=== PATIENT | female | born 1990 | race Caucasian/White ===

== ENCOUNTER 2018-01-06 14:16 | Emergency (ER) | payer OTHER, SELFPAY ==
[2018-01-06 14:20] VITALS: BP 122/87; PULSE 77; RESP 14; TEMP 36.9; O2SAT 100; BMI 28.3
--- NOTE | 2018-01-06 17:01 | ED.ABDPAIN ---
HPI - Abdominal Pain <ISABELL Huston - Last Filed: 01/06/18 22:30> General Chief Complaint: Abdominal Pain Stated Complaint: severe left side pelvic pain Time Seen by Provider: 01/06/18 17:01 History of Present Illness HPI narrative: 27-year-old female here for complaint of left pelvic pain over the past few weeks on and off. She reports increased pain over the last several days. She was seen at [facility] for this a few weeks ago with a ultrasound that showed that she had a right ovarian cyst no left ovarian cyst otherwise unremarkable ultrasound. She was seen at primary care provider for this as well. She states she has had a whitish discharge over the past couple of weeks. She denies any fevers or chills. She is currently on her menstrual cycle which started 6 days ago. She denies any stressors or relievers of the discomfort. She denies any nausea vomiting. Last bowel movement was yesterday and was unremarkable. She she denies any urinary symptoms. She does report that she did have a miscarriage in November when she was approximately 5 weeks along. She denies any other concerns or complaints at this time. Related Data Home Medications Medication Instructions Recorded Confirmed [id number] fumarate-FA 1 tab PO QPM #0 04/18/16 01/06/18 [] cholecalciferol (vitamin D3) 2,000 iu PO QPM #0 04/18/16 01/06/18 [Vitamin D3] acetaminophen 1 dose PO PRN PRN 01/06/18 01/06/18 aspirin 81 mg PO QPM 01/06/18 01/06/18 hydrocodone-acetaminophen 1 tab PO PRN PRN 01/06/18 01/06/18 ibuprofen 600 mg PO TID PRN 01/06/18 01/06/18 levothyroxine 1 tab PO DAILY 01/06/18 01/06/18 ondansetron 8 mg PO PRN PRN 01/06/18 01/06/18 Previous Rx's Medication Instructions Recorded doxycycline hyclate 100 mg PO BID #28 caplet 01/06/18 metronidazole 500 mg PO BID #28 tab 01/06/18 Allergies Allergy/AdvReac Type Severity Reaction Status Date / Time No Known Drug Allergies Allergy Verified 01/06/18 14:25 Review of Systems <ISABELL Huston - Last Filed: 01/06/18 22:30> Constitutional Denies chills, Denies fever(s), Denies lethargy and Denies weakness Eyes Denies change in vision, Denies eye discharge, Denies irritation and Denies loss of vision ENT Ears, Nose, Mouth, and Throat: Denies change in voice, Denies neck pain and Denies sore throat Cardiovascular Denies chest pain, Denies irregular heart rhythm, Denies lightheadedness, Denies palpitations, Denies dyspnea, Denies dyspnea on exertion and Denies orthopnea Respiratory Denies cough, Denies dyspnea, Denies dyspnea on exertion and Denies wheezing Gastrointestinal Gastrointestinal: Denies abdominal pain, Denies change in bowel habits, Denies diarrhea, Denies nausea and Denies vomiting Genitourinary Denies hematuria, Reports pelvic pain, Denies flank pain, Denies urinary incontinence, Denies urinary urgency and Reports vaginal discharge Musculoskeletal Denies neck pain Integumentary/Breasts Denies pruritus, Denies erythema, Denies rash and Denies wounds Neurologic Denies confusion, Denies loss of vision and Denies weakness Psychiatric Denies anxiety, Denies confusion, Denies depression, Denies homicidal ideation and Denies suicidal ideation Endocrine Denies palpitations Hematologic/Lymphatic Denies easy bruising Allergic/Immunologic Denies wheezing Exam <Remi Blue [facility] - Last Filed: 01/06/18 22:30> Initial Vital Signs Initial Vital Signs: Vital Signs Temperature 98.4 F 01/06/18 14:20 Pulse Rate 77 01/06/18 14:20 Respiratory Rate 14 01/06/18 14:20 Blood Pressure 122/87 H 01/06/18 14:20 Pulse Oximetry 100 01/06/18 14:20 Const General: cooperative and well developed Nutritional Appearance: well nourished Orientation: alert, awake, oriented x3 and not confused [facility] Mouth: oral mucosae normal and moist mucous membranes Eyes General: appearance normal, both eyes and all related structures Eyelids: eyelids normal Conjunctivae: conjunctivae normal Sclera: sclerae normal Pupils: PERRL EOM: EOM intact bilaterally Resp Effort & Inspection: normal respiratory effort, able to speak in complete sentences, no respiratory distress and no use of accessory muscles Auscultation: clear to auscultation bilaterally, no rales, no rhonchi and no wheezes Cardio Rate: regular rate Rhythm: regular rhythm Heart Sounds: no click, no gallops, no murmurs and no rubs GI Inspection: non-distended Palpation: soft, no hepatosplenomegaly, No guarding, No pulsatile mass and tender (Left pelvic tenderness) Auscultation: normal bowel sounds General: No CVA tenderness External Female Exam: external appearance normal and normal appearance of the urethra Speculum Exam - Vagina: abnormal vaginal discharge white Speculum Exam - Cervix: normal appearance of the cervix, closed cervix and cervical tenderness Bimanual Exam- Vagina & Uterus: cervical tenderness and cervical motion tenderness Bimanual Exam- Adnexa, other: adnexal tenderness Skin General: no rashes or lesions noted, No jaundice and No petechiae Neuro General: alert, oriented x3, gait normal and no focal motor deficits Speech: speech normal <Alyx Ely DO - Last Filed: 01/07/18 07:50> Initial Vital Signs Initial Vital Signs: Vital Signs Temperature 98.4 F 01/06/18 14:20 Pulse Rate 77 01/06/18 14:20 Respiratory Rate 14 01/06/18 14:20 Blood Pressure 122/87 H 01/06/18 14:20 Pulse Oximetry 100 01/06/18 14:20 Course <ISABELL Huston - Last Filed: 01/06/18 22:30> Orders Ordered: Discontinued Medications Hydrocodone Bitart/Acetaminophen ([place] 5/325) 1 tab PO NOW ONE Stop: 01/06/18 20:10 Last Admin: 01/06/18 20:39 Dose: 1 tab Ceftriaxone Sodium (Rocephin) 250 mg IM NOW ONE Stop: 01/06/18 20:33 Last Admin: 01/06/18 20:59 Dose: 250 mg Ondansetron HCl (Zofran Odt) 8 mg PO NOW ONE Stop: 01/06/18 20:35 Last Admin: 01/06/18 20:39 Dose: 8 mg Vital Signs - 8 hr 01/06/18 20:24 Pulse Rate 55 L Respiratory Rate 14 Blood Pressure [Left Arm] 106/67 Pulse Oximetry 100 <Alyx Ely DO - Last Filed: 01/07/18 07:50> Orders Ordered: Discontinued Medications Hydrocodone Bitart/Acetaminophen ([place] 5/325) 1 tab PO NOW ONE Stop: 01/06/18 20:10 Last Admin: 01/06/18 20:39 Dose: 1 tab Ceftriaxone Sodium (Rocephin) 250 mg IM NOW ONE Stop: 01/06/18 20:33 Last Admin: 01/06/18 20:59 Dose: 250 mg Ondansetron HCl (Zofran Odt) 8 mg PO NOW ONE Stop: 01/06/18 20:35 Last Admin: 01/06/18 20:39 Dose: 8 mg Vital Signs - 8 hr 01/06/18 20:24 Pulse Rate 55 L Respiratory Rate 14 Blood Pressure [Left Arm] 106/67 Pulse Oximetry 100 MDM - Abdominal Pain <ISABELL Huston - Last Filed: 01/06/18 22:30> Lab Data Result diagrams: 01/06/18 Unknown 01/06/18 Unknown Lab Results 01/06/18 01/06/18 Range/Units Unknown Unknown WBC 5.8 (4.5-11.0) X10^3/uL RBC 4.23 (4.0-5.2) X10^6/uL Hgb 13.1 (12.0-16.0) g/dL Hct 38.3 (36-46) % MCV 90.7 (80-100) fL MCH 30.9 (26-34) PG MCHC 34.1 (30-36) % RDW 12.4 (11.6-14.8) % Plt Count 251 (150-400) X10^3/uL Neut % (Auto) 58.3 (50-75) % Lymph % (Auto) 35.5 (25-40) % [place] % (Auto) 4.4 (3-14) % Eos % (Auto) 1.1 L (2-4) % Baso % (Auto) 0.7 (0-2) % Neut # (Auto) 3400 (6328-1087) /uL Sodium 142 (137-145) mmol/L Potassium 4.2 (3.4-5.1) mmol/L Chloride 105 (98-107) mmol/L Carbon Dioxide 27 (22-32) mmol/L BUN 9 (7-17) mg/dL Creatinine 0.60 (0.52-1.04) mg/dL Estimated GFR > 60.0 (>60) mL/min BUN/Creatinine Ratio 15.0 (6-22) Glucose 82 (70-100) mg/dL Calcium 9.2 (8.4-10.2) mg/dL Total Bilirubin 0.4 (0.2-1.3) mg/dL AST 24 (14-36) IU/L ALT 34 (9-52) IU/L Alkaline Phosphatase 66 (38-126) U/L Total Protein 6.9 (6.3-8.2) g/dL Albumin 4.5 (3.5-5.0) g/dL Globulin 2.4 (1.7-4.1) g/dL Albumin/Globulin Ratio 1.9 (1.0-2.8) Point of care testing: Point of Care Testing Test Results Negative Urine Dip Bedside Urine Glucose Negative Bedside Urine Bilirubin - Negative Bedside Urine Ketone +/- 5 Urine Specific [place] 1.015 Bedside Urine Occult Blood - Negative Bedside Urine pH 6.0 Bedside Urine Protein - Negative Bedside Urine Urobilinogen - Negative Bedside Urine Nitrite - Negative Bedside Urine Leukocytes - Negative Esterase Imaging Data pelvic US: Radiologist's impression: Patient: Shelby Kohler MR#: [id number] : 1990 Acct:[id number] Age/Sex: 27 / F Date of Service: 01/06/18 Loc: ED Accession Number: [id number] Procedure: US pelvic complete Ordering Provider: Remi Blue PROCEDURE: US PELVIC COMPLETE INDICATIONS: left pelvic pain TECHNIQUE: Real-time scanning was performed of the pelvic organs, with image documentation. Additional endovaginal scanning was necessary due to incomplete visualization of the adnexal and endometrial structures by transabdominal scanning. COMPARISON: None. FINDINGS: Transabdominal scanning: Limited scanning through the kidneys shows no hydronephrosis. There is a small amount of free fluid in the left adnexa which appears within physiologic limits. Endovaginal scanning: Uterus: Uterus is normal in size at 5.9 x 3.3 x 4.5 cm. The endometrium measures 6 mm in combined thickness. Ovaries: The right ovary measures 3.0 x 2.3 x 4.3 cm and the left ovary measures 3.4 x 1.6 x 2.5 cm. No adnexal masses. There are a few scattered small ovarian follicles noted. IMPRESSION: 1. Normal sonographic study of the pelvis. Dictated by: Jorden Zacarias M.D. on 01/06/2018 at 18:04 Approved by: Jorden Zacarias M.D. on 01/06/2018 at 18:06 [facility] Narrative Medical decision making narrative: CBC and Chem panel were obtained were unremarkable. Urinalysis was negative for urinary tract infection and also negative for . Pelvic ultrasound was obtained was negative for any acute findings. Wet prep was obtained and does show positive for yeast however is negative for clue cells or Trichomonas. Pelvic exam demonstrates tenderness at the cervical area with motion and adnexa. She is empirically treated for PID with doxycycline and metronidazole. A couple of Diflucan is also prescribed to help with the infection and the antibiotics. She is encouraged to follow up with the primary care provider in the next few days for re-evaluation. [id number] Tylenol Motrin as needed for any discomfort. For any worsening symptoms return to the emergency room. <Alyx Ely DO - Last Filed: 01/07/18 07:50> Lab Data Lab Results 01/06/18 01/06/18 Range/Units Unknown Unknown WBC 5.8 (4.5-11.0) X10^3/uL RBC 4.23 (4.0-5.2) X10^6/uL Hgb 13.1 (12.0-16.0) g/dL Hct 38.3 (36-46) % MCV 90.7 (80-100) fL MCH 30.9 (26-34) PG MCHC 34.1 (30-36) % RDW 12.4 (11.6-14.8) % Plt Count 251 (150-400) X10^3/uL Neut % (Auto) 58.3 (50-75) % Lymph % (Auto) 35.5 (25-40) % [place] % (Auto) 4.4 (3-14) % Eos % (Auto) 1.1 L (2-4) % Baso % (Auto) 0.7 (0-2) % Neut # (Auto) 3400 (8464-2310) /uL Sodium 142 (137-145) mmol/L Potassium 4.2 (3.4-5.1) mmol/L Chloride 105 (98-107) mmol/L Carbon Dioxide 27 (22-32) mmol/L BUN 9 (7-17) mg/dL Creatinine 0.60 (0.52-1.04) mg/dL Estimated GFR > 60.0 (>60) mL/min BUN/Creatinine Ratio 15.0 (6-22) Glucose 82 (70-100) mg/dL Calcium 9.2 (8.4-10.2) mg/dL Total Bilirubin 0.4 (0.2-1.3) mg/dL AST 24 (14-36) IU/L ALT 34 (9-52) IU/L Alkaline Phosphatase 66 (38-126) U/L Total Protein 6.9 (6.3-8.2) g/dL Albumin 4.5 (3.5-5.0) g/dL Globulin 2.4 (1.7-4.1) g/dL Albumin/Globulin Ratio 1.9 (1.0-2.8) Point of care testing: Point of Care Testing Test Results Negative Urine Dip Bedside Urine Glucose Negative Bedside Urine Bilirubin - Negative Bedside Urine Ketone +/- 5 Urine Specific [place] 1.015 Bedside Urine Occult Blood - Negative Bedside Urine pH 6.0 Bedside Urine Protein - Negative Bedside Urine Urobilinogen - Negative Bedside Urine Nitrite - Negative Bedside Urine Leukocytes - Negative Esterase Discharge Plan Departure Patient Disposition: Home, Self-Care Clinical Impression: Candidiasis of vagina Discharge Date/Time: 01/06/18 21:13 Instructions: DI for Vaginal Yeast Infection Activity Restrictions/Additional Instructions: Laboratory results show yeast infection to the vaginal area otherwise were unremarkable. Pelvic ultrasound was obtained was negative for any acute findings. Due to pain on examination to the pelvic region and also to the adnexal region will empirically treat for PID with antibiotics use as directed. Diflucan is also prescribed for the yeast infection also use as directed. Use [id number] Tylenol as needed for any discomfort free follow up with primary care provider in the next few days for re-evaluation. For any worsening symptoms return to the emergency room. Prescriptions: New doxycycline hyclate 100 mg capsule 100 mg PO BID Qty: 28 RF: 0 metronidazole 500 mg tablet 500 mg PO BID Qty: 28 RF: 0 No Action cholecalciferol (vitamin D3) [Vitamin D3] 2,000 UNIT capsule 2,000 iu PO QPM Qty: 0 RF: 0 [id number] fumarate-FA [] 28-800 mg-mcg Tablet 1 tab PO QPM Qty: 0 RF: 0 hydrocodone-acetaminophen 5-325 mg tablet 1 tab PO PRN PRN (Reason: Pain, Moderate) RF: 0 ondansetron 8 mg tablet,disintegrating 8 mg PO PRN PRN (Reason: Nausea) RF: 0 levothyroxine 100 mcg tablet 1 tab PO DAILY RF: 0 ibuprofen 600 mg tablet 600 mg PO TID PRN (Reason: Pain, Moderate) RF: 0 acetaminophen 325 mg Tablet 1 dose PO PRN PRN (Reason: Pain, Mild) RF: 0 aspirin 81 mg Tablet,Delayed Release (Dr/Ec) 81 mg PO QPM RF: 0 Referrals: Lobo Naranjo MD [Primary Care Provider] - Stand Alone Forms: Work/School Restrictions <Alyx Ely DO - Last Filed: 01/07/18 07:50> Cosign ED Attending Santos Attestation: I was immediately available in the department for consultation. Documentation has been reviewed. I agree with assessment and plan.
[2018-01-06 17:09] LABS: Add Manual Diff / Slide Review NO; Basophils Percent Auto 0.7 % (0-2); Eosinophils Percent Auto 1.1 % (2-4); Hematocrit 38.3 % (36-46); Hemoglobin 13.1 g/dL (12.0-16.0); Lymphocytes Percent Auto 35.5 % (25-40); Mean Corpuscular HGB Conc 34.1 % (30-36); Mean Corpuscular Hemoglobin 30.9 PG (26-34); Mean Corpuscular Volume 90.7 fL (80-100); Monocytes Percent Auto 4.4 % (3-14); Neutrophils Absolute Auto 3400 /uL (3000-5900); Neutrophils Percent Auto 58.3 % (50-75); Platelet Count 251 X10^3/uL (150-400); Red Blood Cell Count 4.23 X10^6/uL (4.0-5.2); Red Cell Distribution Width 12.4 % (11.6-14.8); White Blood Cell Count 5.8 X10^3/uL (4.5-11.0)
--- NOTE | 2018-01-06 17:14 | DI.US.S_ITS ---
PROCEDURE: US PELVIC COMPLETE INDICATIONS: left pelvic pain TECHNIQUE: Real-time scanning was performed of the pelvic organs, with image documentation. Additional endovaginal scanning was necessary due to incomplete visualization of the adnexal and endometrial structures by transabdominal scanning. COMPARISON: None. FINDINGS: Transabdominal scanning: Limited scanning through the kidneys shows no hydronephrosis. There is a small amount of free fluid in the left adnexa which appears within physiologic limits. Endovaginal scanning: Uterus: Uterus is normal in size at 5.9 x 3.3 x 4.5 cm. The endometrium measures 6 mm in combined thickness. Ovaries: The right ovary measures 3.0 x 2.3 x 4.3 cm and the left ovary measures 3.4 x 1.6 x 2.5 cm. No adnexal masses. There are a few scattered small ovarian follicles noted. IMPRESSION: 1. Normal sonographic study of the pelvis. Dictated by: Jorden Zacarias M.D. on 01/06/2018 at 18:04 Approved by: Jorden Zacarias M.D. on 01/06/2018 at 18:06
[2018-01-06 17:21] LABS: Alanine Aminotransferase 34 IU/L (9-52); Albumin 4.5 g/dL (3.5-5.0); Albumin Globulin Ratio 1.9 (1.0-2.8); Alkaline Phosphatase 66 U/L (38-126); Aspartate Aminotransferase 24 IU/L (14-36); Bilirubin Total 0.4 mg/dL (0.2-1.3); Blood Urea Nitrogen 9 mg/dL (7-17); Calcium 9.2 mg/dL (8.4-10.2); Carbon Dioxide 27 mmol/L (22-32); Chloride 105 mmol/L (98-107); Estimated Glomerular Filt Rate > 60.0 mL/min (>60); Globulin 2.4 g/dL (1.7-4.1); Glucose 82 mg/dL (70-100); HEMOLYSIS < 15 (0-50); Potassium 4.2 mmol/L (3.4-5.1); Sodium 142 mmol/L (137-145); Total Protein 6.9 g/dL (6.3-8.2)
--- NOTE | 2018-01-06 19:55 | ED_ITS ---
HPI - Abdominal Pain <ISABELL Huston - Last Filed: 01/06/18 22:30> General Chief Complaint: Abdominal Pain Stated Complaint: severe left side pelvic pain Time Seen by Provider: 01/06/18 17:01 History of Present Illness HPI narrative: 27-year-old female here for complaint of left pelvic pain over the past few weeks on and off. She reports increased pain over the last several days. She was seen at [facility] for this a few weeks ago with a ultrasound that showed that she had a right ovarian cyst no left ovarian cyst otherwise unremarkable ultrasound. She was seen at primary care provider for this as well. She states she has had a whitish discharge over the past couple of weeks. She denies any fevers or chills. She is currently on her menstrual cycle which started 6 days ago. She denies any stressors or relievers of the discomfort. She denies any nausea vomiting. Last bowel movement was yesterday and was unremarkable. She she denies any urinary symptoms. She does report that she did have a miscarriage in November when she was approximately 5 weeks along. She denies any other concerns or complaints at this time. Related Data Home Medications Medication Instructions Recorded Confirmed [id number] fumarate-FA 1 tab PO QPM #0 04/18/16 01/06/18 [] cholecalciferol (vitamin D3) 2,000 iu PO QPM #0 04/18/16 01/06/18 [Vitamin D3] acetaminophen 1 dose PO PRN PRN 01/06/18 01/06/18 aspirin 81 mg PO QPM 01/06/18 01/06/18 hydrocodone-acetaminophen 1 tab PO PRN PRN 01/06/18 01/06/18 ibuprofen 600 mg PO TID PRN 01/06/18 01/06/18 levothyroxine 1 tab PO DAILY 01/06/18 01/06/18 ondansetron 8 mg PO PRN PRN 01/06/18 01/06/18 Previous Rx's Medication Instructions Recorded doxycycline hyclate 100 mg PO BID #28 caplet 01/06/18 metronidazole 500 mg PO BID #28 tab 01/06/18 Allergies Allergy/AdvReac Type Severity Reaction Status Date / Time No Known Drug Allergies Allergy Verified 01/06/18 14:25 Review of Systems <ISABELL Huston - Last Filed: 01/06/18 22:30> Constitutional Denies chills, Denies fever(s), Denies lethargy and Denies weakness Eyes Denies change in vision, Denies eye discharge, Denies irritation and Denies loss of vision ENT Ears, Nose, Mouth, and Throat: Denies change in voice, Denies neck pain and Denies sore throat Cardiovascular Denies chest pain, Denies irregular heart rhythm, Denies lightheadedness, Denies palpitations, Denies dyspnea, Denies dyspnea on exertion and Denies orthopnea Respiratory Denies cough, Denies dyspnea, Denies dyspnea on exertion and Denies wheezing Gastrointestinal Gastrointestinal: Denies abdominal pain, Denies change in bowel habits, Denies diarrhea, Denies nausea and Denies vomiting Genitourinary Denies hematuria, Reports pelvic pain, Denies flank pain, Denies urinary incontinence, Denies urinary urgency and Reports vaginal discharge Musculoskeletal Denies neck pain Integumentary/Breasts Denies pruritus, Denies erythema, Denies rash and Denies wounds Neurologic Denies confusion, Denies loss of vision and Denies weakness Psychiatric Denies anxiety, Denies confusion, Denies depression, Denies homicidal ideation and Denies suicidal ideation Endocrine Denies palpitations Hematologic/Lymphatic Denies easy bruising Allergic/Immunologic Denies wheezing Exam <Remi Blue [facility] - Last Filed: 01/06/18 22:30> Initial Vital Signs Initial Vital Signs: Vital Signs Temperature 98.4 F 01/06/18 14:20 Pulse Rate 77 01/06/18 14:20 Respiratory Rate 14 01/06/18 14:20 Blood Pressure 122/87 H 01/06/18 14:20 Pulse Oximetry 100 01/06/18 14:20 Const General: cooperative and well developed Nutritional Appearance: well nourished Orientation: alert, awake, oriented x3 and not confused [facility] Mouth: oral mucosae normal and moist mucous membranes Eyes General: appearance normal, both eyes and all related structures Eyelids: eyelids normal Conjunctivae: conjunctivae normal Sclera: sclerae normal Pupils: PERRL EOM: EOM intact bilaterally Resp Effort & Inspection: normal respiratory effort, able to speak in complete sentences, no respiratory distress and no use of accessory muscles Auscultation: clear to auscultation bilaterally, no rales, no rhonchi and no wheezes Cardio Rate: regular rate Rhythm: regular rhythm Heart Sounds: no click, no gallops, no murmurs and no rubs GI Inspection: non-distended Palpation: soft, no hepatosplenomegaly, No guarding, No pulsatile mass and tender (Left pelvic tenderness) Auscultation: normal bowel sounds General: No CVA tenderness External Female Exam: external appearance normal and normal appearance of the urethra Speculum Exam - Vagina: abnormal vaginal discharge white Speculum Exam - Cervix: normal appearance of the cervix, closed cervix and cervical tenderness Bimanual Exam- Vagina & Uterus: cervical tenderness and cervical motion tenderness Bimanual Exam- Adnexa, other: adnexal tenderness Skin General: no rashes or lesions noted, No jaundice and No petechiae Neuro General: alert, oriented x3, gait normal and no focal motor deficits Speech: speech normal <Alyx Ely DO - Last Filed: 01/07/18 07:50> Initial Vital Signs Initial Vital Signs: Vital Signs Temperature 98.4 F 01/06/18 14:20 Pulse Rate 77 01/06/18 14:20 Respiratory Rate 14 01/06/18 14:20 Blood Pressure 122/87 H 01/06/18 14:20 Pulse Oximetry 100 01/06/18 14:20 Course <ISABELL Huston - Last Filed: 01/06/18 22:30> Orders Ordered: Discontinued Medications Hydrocodone Bitart/Acetaminophen ([place] 5/325) 1 tab PO NOW ONE Stop: 01/06/18 20:10 Last Admin: 01/06/18 20:39 Dose: 1 tab Ceftriaxone Sodium (Rocephin) 250 mg IM NOW ONE Stop: 01/06/18 20:33 Last Admin: 01/06/18 20:59 Dose: 250 mg Ondansetron HCl (Zofran Odt) 8 mg PO NOW ONE Stop: 01/06/18 20:35 Last Admin: 01/06/18 20:39 Dose: 8 mg Vital Signs - 8 hr 01/06/18 20:24 Pulse Rate 55 L Respiratory Rate 14 Blood Pressure [Left Arm] 106/67 Pulse Oximetry 100 <Alyx Ely DO - Last Filed: 01/07/18 07:50> Orders Ordered: Discontinued Medications Hydrocodone Bitart/Acetaminophen ([place] 5/325) 1 tab PO NOW ONE Stop: 01/06/18 20:10 Last Admin: 01/06/18 20:39 Dose: 1 tab Ceftriaxone Sodium (Rocephin) 250 mg IM NOW ONE Stop: 01/06/18 20:33 Last Admin: 01/06/18 20:59 Dose: 250 mg Ondansetron HCl (Zofran Odt) 8 mg PO NOW ONE Stop: 01/06/18 20:35 Last Admin: 01/06/18 20:39 Dose: 8 mg Vital Signs - 8 hr 01/06/18 20:24 Pulse Rate 55 L Respiratory Rate 14 Blood Pressure [Left Arm] 106/67 Pulse Oximetry 100 MDM - Abdominal Pain <ISABELL Huston - Last Filed: 01/06/18 22:30> Lab Data Result diagrams: 01/06/18 Unknown 01/06/18 Unknown Lab Results 01/06/18 01/06/18 Range/Units Unknown Unknown WBC 5.8 (4.5-11.0) X10^3/uL RBC 4.23 (4.0-5.2) X10^6/uL Hgb 13.1 (12.0-16.0) g/dL Hct 38.3 (36-46) % MCV 90.7 (80-100) fL MCH 30.9 (26-34) PG MCHC 34.1 (30-36) % RDW 12.4 (11.6-14.8) % Plt Count 251 (150-400) X10^3/uL Neut % (Auto) 58.3 (50-75) % Lymph % (Auto) 35.5 (25-40) % Lipscomb % (Auto) 4.4 (3-14) % Eos % (Auto) 1.1 L (2-4) % Baso % (Auto) 0.7 (0-2) % Neut # (Auto) 3400 (6036-0693) /uL Sodium 142 (137-145) mmol/L Potassium 4.2 (3.4-5.1) mmol/L Chloride 105 (98-107) mmol/L Carbon Dioxide 27 (22-32) mmol/L BUN 9 (7-17) mg/dL Creatinine 0.60 (0.52-1.04) mg/dL Estimated GFR > 60.0 (>60) mL/min BUN/Creatinine Ratio 15.0 (6-22) Glucose 82 (70-100) mg/dL Calcium 9.2 (8.4-10.2) mg/dL Total Bilirubin 0.4 (0.2-1.3) mg/dL AST 24 (14-36) IU/L ALT 34 (9-52) IU/L Alkaline Phosphatase 66 (38-126) U/L Total Protein 6.9 (6.3-8.2) g/dL Albumin 4.5 (3.5-5.0) g/dL Globulin 2.4 (1.7-4.1) g/dL Albumin/Globulin Ratio 1.9 (1.0-2.8) Point of care testing: Point of Care Testing Test Results Negative Urine Dip Bedside Urine Glucose Negative Bedside Urine Bilirubin - Negative Bedside Urine Ketone +/- 5 Urine Specific [place] 1.015 Bedside Urine Occult Blood - Negative Bedside Urine pH 6.0 Bedside Urine Protein - Negative Bedside Urine Urobilinogen - Negative Bedside Urine Nitrite - Negative Bedside Urine Leukocytes - Negative Esterase Imaging Data pelvic US: Radiologist's impression: Patient: Shelby Kohler MR#: [id number] : 1990 Acct:[id number] Age/Sex: 27 / F Date of Service: 01/06/18 Loc: ED Accession Number: [id number] Procedure: US pelvic complete Ordering Provider: Remi Blue PROCEDURE: US PELVIC COMPLETE INDICATIONS: left pelvic pain TECHNIQUE: Real-time scanning was performed of the pelvic organs, with image documentation. Additional endovaginal scanning was necessary due to incomplete visualization of the adnexal and endometrial structures by transabdominal scanning. COMPARISON: None. FINDINGS: Transabdominal scanning: Limited scanning through the kidneys shows no hydronephrosis. There is a small amount of free fluid in the left adnexa which appears within physiologic limits. Endovaginal scanning: Uterus: Uterus is normal in size at 5.9 x 3.3 x 4.5 cm. The endometrium measures 6 mm in combined thickness. Ovaries: The right ovary measures 3.0 x 2.3 x 4.3 cm and the left ovary measures 3.4 x 1.6 x 2.5 cm. No adnexal masses. There are a few scattered small ovarian follicles noted. IMPRESSION: 1. Normal sonographic study of the pelvis. Dictated by: Jorden Zacarias M.D. on 01/06/2018 at 18:04 Approved by: Jorden Zacarias M.D. on 01/06/2018 at 18:06 [facility] Narrative Medical decision making narrative: CBC and Chem panel were obtained were unremarkable. Urinalysis was negative for urinary tract infection and also negative for . Pelvic ultrasound was obtained was negative for any acute findings. Wet prep was obtained and does show positive for yeast however is negative for clue cells or Trichomonas. Pelvic exam demonstrates tenderness at the cervical area with motion and adnexa. She is empirically treated for PID with doxycycline and metronidazole. A couple of Diflucan is also prescribed to help with the infection and the antibiotics. She is encouraged to follow up with the primary care provider in the next few days for re- evaluation. [id number] Tylenol Motrin as needed for any discomfort. For any worsening symptoms return to the emergency room. <Alyx Ely DO - Last Filed: 01/07/18 07:50> Lab Data Lab Results 01/06/18 01/06/18 Range/Units Unknown Unknown WBC 5.8 (4.5-11.0) X10^3/uL RBC 4.23 (4.0-5.2) X10^6/uL Hgb 13.1 (12.0-16.0) g/dL Hct 38.3 (36-46) % MCV 90.7 (80-100) fL MCH 30.9 (26-34) PG MCHC 34.1 (30-36) % RDW 12.4 (11.6-14.8) % Plt Count 251 (150-400) X10^3/uL Neut % (Auto) 58.3 (50-75) % Lymph % (Auto) 35.5 (25-40) % Lipscomb % (Auto) 4.4 (3-14) % Eos % (Auto) 1.1 L (2-4) % Baso % (Auto) 0.7 (0-2) % Neut # (Auto) 3400 (5155-6900) /uL Sodium 142 (137-145) mmol/L Potassium 4.2 (3.4-5.1) mmol/L Chloride 105 (98-107) mmol/L Carbon Dioxide 27 (22-32) mmol/L BUN 9 (7-17) mg/dL Creatinine 0.60 (0.52-1.04) mg/dL Estimated GFR > 60.0 (>60) mL/min BUN/Creatinine Ratio 15.0 (6-22) Glucose 82 (70-100) mg/dL Calcium 9.2 (8.4-10.2) mg/dL Total Bilirubin 0.4 (0.2-1.3) mg/dL AST 24 (14-36) IU/L ALT 34 (9-52) IU/L Alkaline Phosphatase 66 (38-126) U/L Total Protein 6.9 (6.3-8.2) g/dL Albumin 4.5 (3.5-5.0) g/dL Globulin 2.4 (1.7-4.1) g/dL Albumin/Globulin Ratio 1.9 (1.0-2.8) Point of care testing: Point of Care Testing Test Results Negative Urine Dip Bedside Urine Glucose Negative Bedside Urine Bilirubin - Negative Bedside Urine Ketone +/- 5 Urine Specific [place] 1.015 Bedside Urine Occult Blood - Negative Bedside Urine pH 6.0 Bedside Urine Protein - Negative Bedside Urine Urobilinogen - Negative Bedside Urine Nitrite - Negative Bedside Urine Leukocytes - Negative Esterase Discharge Plan Departure Patient Disposition: Home, Self-Care Clinical Impression: Candidiasis of vagina Discharge Date/Time: 01/06/18 21:13 Instructions: DI for Vaginal Yeast Infection Activity Restrictions/Additional Instructions: Laboratory results show yeast infection to the vaginal area otherwise were unremarkable. Pelvic ultrasound was obtained was negative for any acute findings. Due to pain on examination to the pelvic region and also to the adnexal region will empirically treat for PID with antibiotics use as directed. Diflucan is also prescribed for the yeast infection also use as directed. Use [id number] Tylenol as needed for any discomfort free follow up with primary care provider in the next few days for re-evaluation. For any worsening symptoms return to the emergency room. Prescriptions: New doxycycline hyclate 100 mg capsule 100 mg PO BID Qty: 28 RF: 0 metronidazole 500 mg tablet 500 mg PO BID Qty: 28 RF: 0 No Action cholecalciferol (vitamin D3) [Vitamin D3] 2,000 UNIT capsule 2,000 iu PO QPM Qty: 0 RF: 0 [id number] fumarate-FA [] 28-800 mg-mcg Tablet 1 tab PO QPM Qty: 0 RF: 0 hydrocodone-acetaminophen 5-325 mg tablet 1 tab PO PRN PRN (Reason: Pain, Moderate) RF: 0 ondansetron 8 mg tablet,disintegrating 8 mg PO PRN PRN (Reason: Nausea) RF: 0 levothyroxine 100 mcg tablet 1 tab PO DAILY RF: 0 ibuprofen 600 mg tablet 600 mg PO TID PRN (Reason: Pain, Moderate) RF: 0 acetaminophen 325 mg Tablet 1 dose PO PRN PRN (Reason: Pain, Mild) RF: 0 aspirin 81 mg Tablet,Delayed Release (Dr/Ec) 81 mg PO QPM RF: 0 Referrals: Lobo Naranjo MD [Primary Care Provider] - Stand Alone Forms: Work/School Restrictions <Alyx Ely DO - Last Filed: 01/07/18 07:50> Cosign ED Attending Santos Attestation: I was immediately available in the department for consultation. Documentation has been reviewed. I agree with assessment and plan.
--- NOTE | 2018-01-06 19:57 | PC.NURSE ---
Stand-by assist for Remi during pelvic exam. Pt with some tenderness, tolerated well. Specimens sent to lab
[2018-01-06 20:24] VITALS: BP 106/67; PULSE 55; RESP 14; O2SAT 100
[2018-01-06] MEDS: HYDROCODONE/ACET 5/325 TABLET 1 TAB PO (20:39)
[2018-01-06] MEDS: ONDANSETRON 4 MG ODT 8 MG PO (20:39)
[2018-01-06] MEDS: cefTRIAXone 500 MG VIAL 250 MG IM (20:59)
== END 2018-01-06 21:13 | disposition home or self-care (01) ==
PROVIDERS: Emergency Provider Nurse Practitioner Family
DX: B37.3 Candidiasis of vulva and vagina (principal)
CPT/HCPCS: 76830; 76856; 80053; 81003; 81025; 85025; 87070; 87205; 87210; 87491; 87591; 96372; 99281; 99284; J0696